=== PATIENT | female | born 1955 | race American Indian/Alaskan Native ===

== ENCOUNTER 2018-09-19 08:40 | Outpatient (CLI) | payer OTHER ==
[2018-09-19 10:36] LABS: Hematocrit 35.6 % (30.3-42.9); Mean Corpuscular HGB Conc 34 % (30-34); Mean Corpuscular Volume 88 fl (79-97); Platelet Count 276 K/mm3 (140-440); Red Blood Count 4.03 M/mm3 (3.65-5.03); Red Cell Distribution Width 13.4 % (13.2-15.2)
[2018-09-19 11:11] LABS: Alanine Aminotransferase 18 units/L (7-56); Albumin 4.4 g/dL (3.9-5); BUN/Creatinine Ratio 27; Blood Urea Nitrogen 19 mg/dL (7-17); Calcium 9.5 mg/dL (8.4-10.2); Chol/HDL Ratio 3.43 %; HDL Cholesterol 67 mg/dL (40-59); Hemolysis Index 0; LDL Cholesterol,Direct 161 mg/dL (50-130)
== END 2018-09-19 08:41 | disposition home or self-care (01) ==
LOC: LAB 08:40
PROVIDERS: ATTEND Internal Medicine
DX: Z13.220 Encounter for screening for lipoid disorders (principal); M81.8 Other osteoporosis without current pathological fracture; E78.1 Pure hyperglyceridemia; R73.03 Prediabetes; K21.9 Gastro-esophageal reflux disease without esophagitis
CPT/HCPCS: 36415; 80053; 80061; 83036; 85027

== ENCOUNTER 2019-02-16 10:25 | Outpatient (CLI) | payer OTHER ==
[2019-02-16 11:47] LABS: Chol/HDL Ratio 3.36 %
== END 2019-02-16 10:26 | disposition home or self-care (01) ==
LOC: LAB 10:25
PROVIDERS: ATTEND Internal Medicine
DX: Z13.29 Encounter for screening for other suspected endocrine disorder (principal); R73.03 Prediabetes; E78.1 Pure hyperglyceridemia
CPT/HCPCS: 36415; 80061; 83036; 84443

== ENCOUNTER 2020-05-05 13:02 | Outpatient (CLI) | payer MEDICARE, OTHER ==
[2020-05-05 13:30] LABS: Bilirubin,Urine NEG (Negative); Blood,Urine SM (Negative); Color,Urine Yellow (Yellow); Mucus,Urine FEW /HPF; Protein,Urine <15 mg/dL mg/dL (Negative); Urobilinogen,Urine < 2.0 mg/dL (<2.0)
== END 2020-05-05 13:03 | disposition home or self-care (01) ==
LOC: LAB 13:02
PROVIDERS: ATTEND Internal Medicine
DX: N39.0 Urinary tract infection, site not specified (principal)
CPT/HCPCS: 81001